=== PATIENT | female | born 1970 | race Caucasian/White ===

== ENCOUNTER 2017-09-17 20:56 | Emergency (ER) | payer OTHER ==
[2017-09-17] MEDS ORDERED: KETOROLAC 60 MG/2 ML VIAL IM STA (21:26)
[2017-09-17] MEDS ORDERED: DEXAMETHASONE 10 MG/ML VIAL PO STA (21:26)
[2017-09-17] MEDS ORDERED: diazePAM 5 MG TABLET PO STA (21:26)
--- NOTE | 2017-09-17 21:48 | ED Physician Documentation ---
History of Present Illness - Stated complaint Stated Complaint: NECK PX/NUMBNESS - Chief complaint Chief Complaint: General - History obtained from History obtained from: Patient - History of Present Illness Timing: Today Pain level max: 8 Pain level now: 8 Improved by: aleve Worsened by: movement - Additonal information Additional information: Patient is a 46-year-old female who states that she woke up this morning with a stiff neck that is gradually worsened throughout the day. Now hurts to turn either way. Took Aleve earlier today with mild relief and then took Motrin this afternoon. Still having pain. States her arms feel tingly at times. Denies any trauma. Denies any fevers. No vomiting. Review of Systems Constitutional: denies: Fever, Chills Throat: denies: Sore throat Cardiac: denies: Chest pain / pressure, Palpitations Respiratory: denies: Cough GI: denies: Abdominal Pain, Nausea, Vomiting Skin: denies: Rash Musculoskeletal: denies: Back pain Neurologic: denies: Focal weakness, Seizure, Confused, Headache PD PAST MEDICAL HISTORY - Past Medical History Past Medical History: Yes Psych: Depression - Past Surgical History Past Surgical History: No - Present Medications Home Medications: Ambulatory Orders Medication Instructions Recorded Confirmed Meloxicam [Mobic] 7.5 mg PO BID PRN #20 tablet 09/17/17 diazePAM [Valium] 5 - 10 mg PO TID PRN #15 tablet 09/17/17 - Allergies Allergies/Adverse Reactions: Allergies Allergy/AdvReac Type Severity Reaction Status Date / Time No Known Drug Allergies Allergy Verified 09/17/17 21:09 - Living Situation Living Situation: reports: With family Living Arrangement: reports: At home - Social History Does the pt smoke?: No Does the pt drink ETOH?: Yes Does the pt have substance abuse?: Yes Substance Use and Type: Marijuana - Family History Family history: reports: Non contributory PD ED PE NORMAL - Vitals Vital signs reviewed: Yes - General General: Alert and oriented X 3, No acute distress - HEENT HEENT: Atraumatic, PERRL, Moist mucous membranes - Neck Neck: Supple, no meningeal sign, No bony TTP, Other (Paraspinal spasm present bilateral cervical spine as well as the bilateral trapezial ridge. Pain increases with rotational movement. No meningeal signs. Normal neurological exam of the bilateral upper extremities. 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 Feels better after Valium and medication here. Will place on meloxicam and Valium for home. She is on an SSRI at home, therefore will not utilize Flexeril. No evidence of meningitis. No evidence of fracture. No evidence of epidural abscess. Patient counseled regarding signs and symptoms for which I believe and urgent re-evaluation would be necessary. Patient with good understanding of and agreement to plan and is comfortable going home at this time This document was made in part using voice recognition software. While efforts are made to proofread this document, sound alike and grammatical errors may occur. Departure - Departure Disposition: 01 Home, Self Care Clinical Impression: Neck muscle spasm Condition: Good Instructions: ED Spasm Neck No Injury Follow-Up: your,doctor in 3 days if not better [Other] Prescriptions: diazePAM [Valium] 5 - 10 mg PO TID PRN #15 tablet PRN Reason: Spasms Meloxicam [Mobic] 7.5 mg PO BID PRN #20 tablet PRN Reason: Pain Comments: Return if you worsen. Gently range her neck at home. You can try heating pad as well. This should improve over the next 24-48 hours. Discharge Date/Time: 09/17/17 22:04
[2017-09-17 21:53] VITALS: BP 129/87
== END 2017-09-17 22:04 | disposition home or self-care (01) ==
LOC: ED 20:56
DX: M62.838 Other muscle spasm (principal)
CPT/HCPCS: 96372; 99283; A9270